=== PATIENT | male | born 2000 | race Caucasian/White ===

== ENCOUNTER 2020-05-17 00:46 | Outpatient (CLI) | payer SELFPAY ==
[2020-05-17 20:43] LABS: SARS-CoV-2 RNA PCR Negative
== END 2020-05-17 00:47 | disposition home or self-care (01) ==
LOC: ANHCOVIDDT 00:46
PROVIDERS: Visit Provider Orthopaedic Surgery
DX: Z01.812 Encounter for preprocedural laboratory examination (principal); Z11.59 Encounter for screening for other viral diseases
CPT/HCPCS: 87635; C9803; U0003

== ENCOUNTER 2020-05-20 01:08 | Day surgery (SDC) | payer SELFPAY ==
[2020-05-14 14:13] VITALS: BMI 23.1
[2020-05-20] VITALS (8 sets, daily range): BP systolic 109–136; BP diastolic 59–86; PULSE 53–67; RESP 11–20; TEMP 36.2–36.7; O2SAT 100; BMI 22.6
--- NOTE | ~2020-05-20 | XR_ITS ---
EXAMINATION: XR surgery orthopedic DATE: 05/20/2020 11:28 INDICATION: ORIF left second metacarpal fracture TECHNIQUE: 2 fluoroscopic spot images of the left second metacarpal were obtained during procedure pe rformed by Dr. Bartlett. Radiologist was not present for the imaging or procedure. The amount of fluorosc opy time used during this procedure was 0.5 minutes. COMPARISON: None. FINDINGS: Interval reduction and internal fixation of the previously seen likely comminuted fracture at the pro ximal to mid aspect of the left second metacarpal. Fracture is fixed with 3 interfragmentary screws a nd a dorsal plate and screws. Alignment post fixation appears near-anatomic. The profiled joint space s appear normal. IMPRESSION: 1. Near-anatomic alignment post internal fixation of a likely comminuted fractures left second metaca rpal. See procedure note for further detail. Reviewed, dictated and finalized at location A. IMPRESSION: 1. Near-anatomic alignment post internal fixation of a likely comminuted fractu res left second metacarpal. See procedure note for further detail.
--- NOTE | 2020-05-20 08:04 | WPDANESEPPF ---
Anes - Initial Pre Proc Eval Procedure: Operation Date: 05/20/20 11:00 Proposed Procedures p Open Reduction Internal Fixation Of Left Second Metacarpal - Kamaljit Bartlett MD Date/Time: 05/20/20 08:04 Surgeon: Kamaljit Bartlett MD Pre Op Diagnosis: Left Second Metacarpal Fracture Patient Data Age: 20 Gender: M Height: 1.88 m Weight: 81.65 kg Allergies Allergy/AdvReac Type Severity Reaction Status Date / Time No Known Allergies Allergy Unverified 05/14/20 14:13 Home Medications Medication Instructions Recorded Confirmed Type hydrocodone 5 mg-acetaminophen 325 1 tablet PO Q8H PRN 05/14/20 05/14/20 History mg tablet ibuprofen 400 mg PO DAILY PRN 05/14/20 05/14/20 History Patient hx anesthesia problems: none Family hx anesthesia problems: none PMFSH Past Medical History Medical History (Updated 05/20/20 @ 08:04 by Azeem Regan DO) Gout Hyperlipidemia diet controlled Social History Social History Smoking status: Never smoker Alcohol intake: current Drinks per week: 1 Additional occupation/education comments: [employer] Gender identity (if verbalized by the patient): Male Spiritual care concerns: Yes (DENIES [employer]ODUCTS) Anes - Eval Final PreProcedure Day of Procedure 05/20/20 08:04 Patient weight: normal Heart: regular rate and rhythm Lungs: clear to auscultation and normal air movement Airway: Mallampati scale class II Neurological: alert and oriented Last oral intake: >/= 8 hours ASA classification: II Emergent: no Anesthetic plan: proceed Anesthesia type and monitoring: general LMA and standard monitoring Informed Consent: The patient's anesthetic plan and its attendant risks and benefits were discussed with the patient/family/POA. Questions were solicited and answers provided to the satisfaction of the patient/family/POA.
--- NOTE | 2020-05-20 08:05 | WPDANESPNB ---
Anes - Peripheral Nerve Block Date/Time: 05/20/20 08:05 I have discussed with the patient/family/POA the placement of a peripheral nerve block for post-operative pain management, including associated risks, benefits, complications, and side effects. Alternative methods of post-operative analgesia were detailed. Questions were solicited and answers provided to the satisfaction of the patient/family/POA. Time-Out: A pre-procedural Time-Out was completed immediately before starting the procedure and confirmed: Patient Identification, Site, Procedure, Patient Position and the Availability of Requisite Equipment. Clinical Indications: Acute post-operative pain management requested by the operative surgeon. Nerve Block Insertion Note Anes-nerve block: supraclavicular left Patient position: supine Skin prep: chlorhexidine Needle: 22 gauge, stimulating, insulated echogenic needle. Needle length: 50 mm Technique: ultrasound Injectate: bupivacaine 0.5% with epi 5 mcg/ml (30cc) Observations: tolerated well Complications: none Procedure start time:: 927 Procedure end time:: 930
--- NOTE | 2020-05-20 09:08 | WPDHPUPDATE1 ---
History and Physical Update Update Date/Time: 05/20/20 09:08 History and Physical has been reviewed, including an updated exam of the patient. There are NO changes in the patient's condition. Risks, benefits, and alternatives have been discussed and questions answered. Patient agrees to proceed with procedure.
[2020-05-20] MEDS: LACTATED RINGERS 1,000 ML 30 ML IV CONT ×2 (09:19→11:43)
[2020-05-20] MEDS: KETOROLAC 15 MG/ML VIAL (*BKC) IV PUSH (09:19)
[2020-05-20] MEDS: ACETAMINOPHEN 500 MG TABLET 1000 MG PO (09:19)
--- NOTE | 2020-05-20 09:26 | SUR.PREOP ---
0900; DR SUNSHINE STATES HE WANTS PT CLIP SHAVED AND ALFA SCRUB.
--- NOTE | 2020-05-20 09:31 | SUR.PREOP ---
LATE NOTE, 0847; PT ARRIVED WEARING BRACE TO LT HAND/WRIST/FOREARM.
[2020-05-20] MEDS: ceFAZolin 2 GM/D5W 50 ML 2 GM/50 ML BAG IVPB (09:47)
--- NOTE | 2020-05-20 12:02 | P.OP_ITS ---
Procedure Note - Detailed Date of procedure: 05/20/20 Pre-op diagnosis: Left Second Metacarpal Fracture Post-op diagnosis: same Procedure performed: ORIF left second metacarpal Description of procedure: the patient was identified and proper site identified. In the preop holding area a left upper extremity block was performed. He was then taken to the operating room and transferred to the OR table placing him supine taking care to pad his torso and extremities. After general anesthetic induction and intubation, a nonsterile tourniquet was placed high on the left arm. Left upper extremity was prepped and draped free in usual sterile fashion. The extremity was exsanguinated and tourniquet was inflated to 250 mmHg remaining up for about 70 minutes. Longitudinal incision was made dorsally over the second metacarpal shaft. Subcutaneous tissue was bluntly dissected. There was a large branch of the sensory portion of the radial nerve which was identified and protected throughout the procedure. The fracture sites were identified and cleared of debris. First the proximal fragment was reapproximated and secured with two 1.5 mm lag screws, and then after that the proximal and distal portions were lagged together also with a 1.5 mm lag screw. Once this was completed a seven hole 2.0 three hole T-plate was contoured and then secured to the metacarpal proximally and distally further securing the construct. This was all done with fluoroscopic visualization. The reduction was noted to be anatomic. Wounds irrigated with sterile antibiotic solution and the tourniquet was released. Skin edges reapproximated with Stair nylon suture after hemostasis was carried out. Sterile dressing was applied. A well-padded extending all the way up to the MCP joints was applied. He tolerated the procedure well. He was awakened, extubated and taken to recovery area in stable condition. There were no known intraoperative complications. Estimated blood loss 20 mL. He received perioperative antibiotics. Anesthesia: GLMA and regional Surgeon: Kamaljit Bartlett MD [employer]i Assembler: Keke Valente Estimated blood loss (mL): 20 Tourniquet time (min): 70 Drains: No Packing: No Pathology: none sent Complications: No immediate complications Condition: stable Disposition: PACU
== END 2020-05-20 13:40 | disposition home or self-care (01) ==
PROVIDERS: PCP Pediatrics; Visit Provider Orthopaedic Surgery
PROC: (CPT 26608; principal; 2020-05-20 11:00)
DX: S62.321A Displaced fracture of shaft of second metacarpal bone, left hand, initial encounter for closed fracture (principal); G89.18 Other acute postprocedural pain; E78.5 Hyperlipidemia, unspecified; M10.9 Gout, unspecified; V29.9XXA Motorcycle rider (driver) (passenger) injured in unspecified traffic accident, initial encounter
CPT/HCPCS: 26615; 64415; A4565; A9270; C1713; J0690; J1100; J1885; J2250; J2405; J2704; J3010; J7120